=== PATIENT | female | born 1985 | race Caucasian/White ===

== ENCOUNTER → 2021-10-29 | Outpatient (CLI) | payer OTHER | LOC: M RAD 15:45 | PROVIDERS: ATTEND Obstetrics & Gynecology | DX: O36.8390 Maternal care for abnormalities of the fetal heart rate or rhythm, unspecified trimester, not applicable or unspecified (principal) ==

== ENCOUNTER 2021-11-22 08:24 | Inpatient (IN) | payer OTHER ==
[~2021-11-22] VITALS: Ht 175.3 cm; Wt 87.4 kg
[2021-11-22] VITALS (39 sets, daily range): BP systolic 108–135; BP diastolic 55–85
[2021-11-22] MEDS ORDERED: IRON27TA2 PO (08:45)
[2021-11-22] MEDS ORDERED: MAGN200T PO (08:46)
[2021-11-22] MEDS ORDERED: PRENTAB9 PO (08:46)
[2021-11-22] MEDS ORDERED: VITA100T59 PO (08:47)
[2021-11-22] MEDS ORDERED: RIBO400T PO (08:48)
[2021-11-22] MEDS ORDERED: TRANEXAMIC ACID INJection 1,000 MG in NS 100 ML IV PRN (11:10)
[2021-11-22] MEDS ORDERED: OXYTOCIN DRIP 30 UNITS in IV 1 EA IV PRN ×4 (11:10)
[2021-11-22] MEDS ORDERED: OXYTOCIN INJ 10 UNITS/ML VIAL (J2590) IV PRN (11:10)
[2021-11-22] MEDS ORDERED: LACTATED RINGER'S 1000 ML IV ONE (11:10)
[2021-11-22] MEDS ORDERED: miSOPROStol 50MCG 1/2 TABLET PO ONE (11:15)
[2021-11-22 11:26] LABS: HEMATOCRIT 31.2 % (36.0-47.0); HEMOGLOBIN 10.3 g/dl (12.0-15.5); MEAN CORPUSCULAR HEMOGLOBIN 30.8 pg (27.0-33.0); MEAN CORPUSCULAR VOLUME 93.4 fl (80.0-96.0); PLATELET COUNT, AUTOMATED 306 10^3/uL (150-450); RED BLOOD COUNT 3.34 10^6/uL (4.00-5.40)
[2021-11-22] MEDS ORDERED: FENTANYL 2MCG/ML ROPIVACAINE 0.2% IN 0.9% NACL 100ML IVBAG As Ordered ONE (15:44)
[2021-11-22] MEDS ORDERED: LR 500 ML IV PRN (16:10)
[2021-11-22] MEDS ORDERED: diphenhydrAMINE 50MG/ML VIAL (J1200) IV PRN (16:10)
[2021-11-22] MEDS ORDERED: NALOXONE INJ 0.4MG/1ML VIAL (J2310 PER 1MG) IV PRN (16:10)
[2021-11-22] MEDS ORDERED: ONDANSETRON 4MG 2ML VIAL IV PRN (16:10)
[2021-11-22] MEDS ORDERED: ePHEDrine SULFATE 25 MG/5 ML(5MG/ML) SYRINGE IVP PRN (16:10)
[2021-11-22] MEDS ORDERED: FENTANYL/ROPIVACAINE/NACL BAG 100 ML EPIDURAL SCH (16:10)
[2021-11-22] MEDS ORDERED: EPIDURAL/PCA KEYS XX PRN (16:10)
[2021-11-22] MEDS ORDERED: OXYTOCIN DRIP 30 UNITS in IV 1 EA IV SCH ×5 (16:55→22:20)
[2021-11-22] MEDS: LR 1,000 ML IV SCH ×2 (17:59→18:51)
[2021-11-22 21:30] LABS: CORD GAS ABE V -3.7; CORD GAS HCO3 V 23.1 MEQ/L; CORD GAS PCO2 V 47.6 mmHg; CORD GAS PH V 7.303 UNITS; CORD GAS PO2 V 29.2 mmHg; CORD GAS SBC V 20.8 MEQ/L; CORD GAS TCO2 V 24.5 MEQ/L
[2021-11-22 21:35] LABS: CORD GAS ABE A -5.5; CORD GAS O2 SAT A 75.9 %; CORD GAS PCO2 A 44.7 mmHg; CORD GAS PH A 7.29 UNITS; CORD GAS SBC A 19.5 MEQ/L; CORD GAS TCO2 A 22.4 MEQ/L
[2021-11-22] MEDS ORDERED: DIBUCAINE 1% OINTMENT 30GM TOP PRN (22:20)
[2021-11-22] MEDS ORDERED: LR 1,000 ML IV SCH (22:20)
[2021-11-22] MEDS ORDERED: MOM 30ML SUSPENSION UDC PO PRN (22:20)
[2021-11-22] MEDS ORDERED: OXYTOCIN INJ 10 UNITS/ML VIAL (J2590) IV ONE (22:20)
[2021-11-22] MEDS ORDERED: METHYLERGONOVINE MALEATE 0.2 MG TAB PO PRN (22:20)
[2021-11-22] MEDS ORDERED: ANUSOL HC CREAM 30GM TOP PRN (22:20)
[2021-11-22] MEDS ORDERED: ACETAMINOPHEN TAB 650MG DOSE (2X325MG) PO PRN (22:20)
[2021-11-22] MEDS ORDERED: DOCUSATE SODIUM 100MG CAPSULE PO PRN (22:20)
[2021-11-22] MEDS ORDERED: RHOGAM 300 MCG (1500 IU) INJ (J2790) IM SCH (22:20)
[2021-11-23 01:08] VITALS: BP 106/62
[2021-11-23] MEDS: IBUPROFEN 600MG TAB PO PRN ×2 (05:31→12:41)
[2021-11-23 06:00] VITALS: BP 105/63
[2021-11-23 07:07] LABS: HEMATOCRIT 28.7 % (36.0-47.0); HEMOGLOBIN 9.2 g/dl (12.0-15.5); MEAN CORPUSCULAR HGB CONC 32.1 g/dl (32.0-36.5); MEAN CORPUSCULAR VOLUME 93.5 fl (80.0-96.0); PLATELET COUNT, AUTOMATED 236 10^3/uL (150-450); RED BLOOD COUNT 3.07 10^6/uL (4.00-5.40); WHITE BLOOD COUNT 15.2 10^3/uL (4.0-10.0)
[2021-11-23] MEDS: ENOXAPARIN 40MG/0.4ML SYRINGE (J1650 PER 10MG) SC SCH (09:44)
[2021-11-23] MEDS: PRENATAL VITAMINS CHEWABLE TABLET PO SCH (09:44)
[2021-11-23] MEDS: ACETAMINOPHEN 500 MG TAB PO PRN ×2 (09:50→20:29)
[2021-11-23 17:55] VITALS: BP 118/72
[2021-11-24] MEDS: IBUPROFEN 600MG TAB PO PRN (05:47)
[2021-11-24 05:50] VITALS: BP 121/76
[2021-11-24] MEDS ORDERED: MEASLES,MUMPS,RUBELLA VACCINE INJ (MMR-II) (90707) SC.IMMUN ONE (09:00)
[2021-11-24] MEDS: ENOXAPARIN 40MG/0.4ML SYRINGE (J1650 PER 10MG) SC SCH (09:35)
[2021-11-24] MEDS: PRENATAL VITAMINS CHEWABLE TABLET PO SCH (09:35)
== END 2021-11-24 12:25 | disposition home or self-care (01) | DRG 807 ==
LOC: M LDI 08:24 → M OBS 11-23 00:30
PROVIDERS: ADMIT Obstetrics & Gynecology; ATTEND Obstetrics & Gynecology
PROC: 10E0XZZ Delivery of Products of Conception, External Approach (ICD-10-PCS; principal; 2021-11-22)
PROC: 0HQ9XZZ Repair Perineum Skin, External Approach (ICD-10-PCS; 2021-11-22)
PROC: 3E033VJ Introduction of Other Hormone into Peripheral Vein, Percutaneous Approach (ICD-10-PCS; 2021-11-22)
PROC: 3E0P7VZ Introduction of Hormone into Female Reproductive, Via Natural or Artificial Opening (ICD-10-PCS; 2021-11-22)
DX: O35.1XX0 Maternal care for (suspected) chromosomal abnormality in fetus, not applicable or unspecified (principal); Z37.0 Single live birth; Z3A.39 39 weeks gestation of pregnancy; O09.523 Supervision of elderly multigravida, third trimester; O70.0 First degree perineal laceration during delivery